=== PATIENT | male | born 2000 | race Two or more races ===

== ENCOUNTER 2022-10-02 03:33 | Inpatient (IN) | payer MEDICAID ==
[~2022-10-02] VITALS: Ht 177.8 cm; Wt 69.0 kg
[2022-10-02 04:27] LABS: BASOPHILS % (AUTO) 0.8 % (0.0-2.0); EOSINOPHILS % (AUTO) 5.4 % (1.0-6.0); HEMATOCRIT 41.3 % (41-53); HEMOGLOBIN 14.3 g/dL (13.5-17.5); LYMPHOCYTES # (AUTO) 1.8 K/uL (1.0-4.8); LYMPHOCYTES % (AUTO) 36.9 % (22.0-44.0); MEAN CORPUSCULAR HEMOGLOBIN 31.7 pg (26.0-34.0); MEAN CORPUSCULAR HGB CONC 34.6 G/dL (31.0-37.0); MEAN CORPUSCULAR VOLUME 92 fL (80-100); MONOCYTES # (AUTO) 0.4 K/uL (0.1-1.0); MONOCYTES % (AUTO) 8.5 % (2.0-9.0); NEUTROPHILS # (AUTO) 2.4 K/uL (1.8-7.7); NEUTROPHILS % (AUTO) 48.4 % (40.0-70.0); PLATELET COUNT (AUTO) 218 K/uL (150-450); RED CELL DISTRIBUTION WIDTH 13.8 % (11.5-14.5)
[2022-10-02 04:38] LABS: COVID AG,FIA SOURCE NASAL SWAB
[2022-10-02 04:40] LABS: ANION GAP 10 mmol/L (8-16); CALCIUM, TOTAL 9.2 mg/dL (8.8-10.5); CARBON DIOXIDE 28 mmol/L (22-29); CHLORIDE 105 mmol/L (98-107); CREATININE 0.84 mg/dL (0.60-1.30); GLOMERULAR FILTR. RATE CALC > 60 mL/min (>60); GLUCOSE,RANDOM 98 mg/dL (70-110); POTASSIUM 3.7 mmol/L (3.5-5.1); SODIUM SERUM 143 mmol/L (136-145)
[2022-10-02 04:45] LABS: ALANINE AMINOTRANSFERASE 41 U/L (12-78); ALBUMIN 3.5 g/dL (3.4-5.0); ALKALINE PHOSPHATASE 84 U/L (46-116); ASPARTATE AMINOTRANSFERASE 36 U/L (15-37); BILIRUBIN,TOTAL 0.5 mg/dL (0.1-1.0); TOTAL PROTEIN, SERUM 6.7 g/dL (6.4-8.2)
[2022-10-02 11:19] LABS: AMPHET/METH SCREEN,URINE NEGATIVE (NEGATIVE); BARBITURATE SCREEN, URINE NEGATIVE (NEGATIVE); BENZODIAZEPINES SCREEN,URINE NEGATIVE (NEGATIVE); CANNABINOID SCREEN,URINE POSITIVE (NEGATIVE); COCAINE SCREEN,URINE NEGATIVE (NEGATIVE); METHADONE SCREEN, URINE NEGATIVE (NEGATIVE); OPIATE SCREEN,URINE NEGATIVE (NEGATIVE); PHENCYCLIDINE SCREEN,URINE NEGATIVE (NEGATIVE)
[2022-10-02] MEDS: LORazepam 2 MG TABLET PO PRN (16:18)
[2022-10-02] MEDS: HALOPERIDOL 5 MG TABLET PO PRN (16:19)
[2022-10-03] MEDS: ZOLPIDEM TARTRATE 10 MG TABLET PO PRN (01:29)
[2022-10-03 02:37] VITALS: BP 99/62; PULSE 75; RESP 19; TEMP 97.1
[2022-10-03] MEDS ORDERED: ONDANSETRON HCL 4 MG TABLET PO PRN (08:45)
[2022-10-03] MEDS ORDERED: BACITRACIN 28 GM OINTMENT TP PRN (08:45)
[2022-10-03] MEDS ORDERED: CloNIDine HCL 0.1 MG TABLET PO PRN (08:45)
[2022-10-03] MEDS ORDERED: PETROLATUM,WHITE 28 GM JELLY TP PRN (08:45)
[2022-10-03] MEDS ORDERED: OMEPRAZOLE 20 MG CAPSULE PO PRN (08:45)
[2022-10-03] MEDS ORDERED: LOPERAMIDE HCL 2 MG CAPSULE PO PRN (08:45)
[2022-10-03] MEDS ORDERED: BENZOCAINE/MENTHOL LOZENGE PO PRN (08:45)
[2022-10-03] MEDS ORDERED: IBUPROFEN 600 MG TABLET PO PRN (08:45)
[2022-10-03] MEDS ORDERED: ALBUTEROL SULFATE HFA 90 MCG/PUFF 8 GM INHALER IH PRN (08:45)
[2022-10-03] MEDS ORDERED: ACETAMINOPHEN 325 MG TABLET PO PRN (08:45)
[2022-10-03] MEDS ORDERED: MAGNESIUM HYDROXIDE SUSPENSION 30 ML UDCUP PO PRN (08:45)
[2022-10-03] MEDS ORDERED: DOCUSATE SODIUM 100 MG CAPSULE PO PRN (08:45)
[2022-10-03] MEDS ORDERED: MAG HYDROX/AL HYDROX/SIMETH ES 30 ML SUSPENSION UDCUP PO PRN (08:45)
[2022-10-03] MEDS: LORazepam 2 MG TABLET PO PRN ×2 (09:21→18:04)
[2022-10-03] MEDS: HALOPERIDOL 5 MG TABLET PO PRN ×2 (09:21→18:04)
[2022-10-03 09:23] VITALS: BP 107/58; PULSE 109; RESP 18; TEMP 97.9
[2022-10-03] MEDS: NICOTINE POLACRILEX 4 MG LOZENGE PO PRN (15:31)
[2022-10-03 20:30] VITALS: RESP 18
[2022-10-04] MEDS: LORazepam 2 MG TABLET PO PRN ×4 (07:56→20:39)
[2022-10-04 08:33] LABS: HEMOGLOBIN A1C 4.7 % (3.8-5.6)
[2022-10-04 08:46] VITALS: BP 108/58; PULSE 85; RESP 18; TEMP 97.8
[2022-10-04 08:48] LABS: CHOL/HDL RATIO 3.2 (4.2-7.3); THYROID STIMULATING HORMONE 1.32 uIU/mL (0.36-3.74)
[2022-10-04] MEDS: NICOTINE POLACRILEX 4 MG LOZENGE PO PRN (18:03)
[2022-10-04] MEDS: HALOPERIDOL 5 MG TABLET PO PRN (19:04)
[2022-10-04 20:35] VITALS: BP 106/60; PULSE 88; RESP 18; TEMP 97.6
[2022-10-04] MEDS: ZOLPIDEM TARTRATE 10 MG TABLET PO PRN (21:04)
[2022-10-05] MEDS: LORazepam 2 MG TABLET PO PRN ×3 (07:49→16:24)
[2022-10-05] MEDS: HALOPERIDOL 5 MG TABLET PO PRN ×2 (07:49→20:13)
[2022-10-05 08:37] VITALS: BP 126/74; PULSE 95; RESP 18; TEMP 97.2
[2022-10-05] MEDS: DIVALPROEX SODIUM 500 MG DR TABLET PO SCH ×2 (10:22→16:24)
[2022-10-05] MEDS: NICOTINE POLACRILEX 4 MG LOZENGE PO PRN ×3 (12:12→23:01)
[2022-10-05 22:09] VITALS: BP 100/80; PULSE 96; RESP 18; TEMP 97.6
[2022-10-06 08:03] VITALS: BP 95/62; PULSE 95; RESP 18; TEMP 97.1
[2022-10-06] MEDS: NICOTINE POLACRILEX 4 MG LOZENGE PO PRN ×3 (08:09→19:31)
[2022-10-06] MEDS: DIVALPROEX SODIUM 500 MG DR TABLET PO SCH ×2 (08:09→16:58)
[2022-10-06 20:47] VITALS: BP 115/71; PULSE 91; RESP 18; TEMP 97.3
[2022-10-06] MEDS: ZOLPIDEM TARTRATE 10 MG TABLET PO PRN (21:39)
[2022-10-07] MEDS: NICOTINE POLACRILEX 4 MG LOZENGE PO PRN (06:12)
[2022-10-07] MEDS: DIVALPROEX SODIUM 500 MG DR TABLET PO SCH ×2 (08:11→17:17)
[2022-10-07 08:28] VITALS: BP 102/63; PULSE 97; RESP 18; TEMP 97.6
[2022-10-07] MEDS: NICOTINE 21 MG/24 HOUR PATCH TD SCH (11:47)
[2022-10-07 20:36] VITALS: BP 113/67; PULSE 99; RESP 18; TEMP 98
[2022-10-07] MEDS: ZOLPIDEM TARTRATE 10 MG TABLET PO PRN (21:53)
[2022-10-07] MEDS: HALOPERIDOL 5 MG TABLET PO PRN (21:54)
[2022-10-08 08:18] VITALS: BP 102/63; PULSE 99; RESP 18; TEMP 97.9
[2022-10-08] MEDS: NICOTINE 21 MG/24 HOUR PATCH TD SCH (08:38)
[2022-10-08] MEDS: DIVALPROEX SODIUM 500 MG DR TABLET PO SCH ×2 (08:38→16:44)
[2022-10-08 21:01] VITALS: BP 96/70; PULSE 89; RESP 18; TEMP 97.4
[2022-10-08] MEDS: ZOLPIDEM TARTRATE 10 MG TABLET PO PRN (21:07)
[2022-10-09] MEDS: NICOTINE 21 MG/24 HOUR PATCH TD SCH (08:11)
[2022-10-09] MEDS: DIVALPROEX SODIUM 500 MG DR TABLET PO SCH ×2 (08:11→16:38)
[2022-10-09 08:20] VITALS: BP 98/58; PULSE 89; RESP 19; TEMP 96.9
[2022-10-09 20:37] VITALS: BP 108/63; PULSE 83; RESP 18; TEMP 97.5
[2022-10-09] MEDS: HALOPERIDOL 5 MG TABLET PO PRN (21:18)
[2022-10-09] MEDS: ZOLPIDEM TARTRATE 10 MG TABLET PO PRN (21:18)
[2022-10-10] MEDS: DIVALPROEX SODIUM 500 MG DR TABLET PO SCH (08:35)
[2022-10-10] MEDS: NICOTINE 21 MG/24 HOUR PATCH TD SCH (08:36)
[2022-10-10 08:38] VITALS: BP 98/56; PULSE 78; RESP 17; TEMP 97.1
[2022-10-10] MEDS ORDERED: DIVA-112 PO (14:49)
== END 2022-10-10 13:45 | disposition home or self-care (01) | DRG 750 ==
LOC: EMS 03:34 → 3EC 22:30
PROVIDERS: ADMIT Psychiatry & Neurology Psychiatry; ATTEND Psychiatry & Neurology Psychiatry
DX: F20.9 Schizophrenia, unspecified (principal); R45.851 Suicidal ideations; F32.9 Major depressive disorder, single episode, unspecified; F41.9 Anxiety disorder, unspecified; K59.00 Constipation, unspecified; I12.9 Hypertensive chronic kidney disease with stage 1 through stage 4 chronic kidney disease, or unspecified chronic kidney disease; N18.9 Chronic kidney disease, unspecified; Z20.822 Contact with and (suspected) exposure to COVID-19; Z71.6 Tobacco abuse counseling; Z72.0 Tobacco use
CPT/HCPCS: 80053; 80061; 80164; 80307; 83036; 84443; 85025; 99285; G0480; Q9967